=== PATIENT | male | born 1950 | race Caucasian/White ===

== ENCOUNTER 2018-01-06 09:32 | Outpatient (CLI) | payer MEDICARE ==
[2018-01-06] MEDS ORDERED: Iopamidol 370 76% 100 ML VIAL ONE (16:46)
== END 2018-01-06 09:33 | disposition home or self-care (01) ==
LOC: BICCT 09:32
PROVIDERS: ATTEND Internal Medicine Gastroenterology
DX: K76.0 Fatty (change of) liver, not elsewhere classified (principal); K76.89 Other specified diseases of liver; R94.5 Abnormal results of liver function studies; N28.1 Cyst of kidney, acquired
CPT/HCPCS: 74170

== ENCOUNTER 2019-02-19 07:44 | Day surgery (SDC) | payer MEDICARE ==
[2019-02-18 08:35] VITALS: BMI 32.4
[~2019-02-19 07:44] MED LIST: Prevnar 13-Val Conj/PF 0.5 ML SYRINGE IM ONE
[2019-02-19 08:10] LABS: #Basophils 0.1 thou/uL (0.0-0.2); #Eosinphils 0.6 thou/uL (0.0-0.7); #Lymphocytes 3.2 thou/uL (1.20-3.40); #Monocytes 0.8 thou/uL (0.11-0.59); #Neutrophils 4.8 thou/uL (1.40-6.50); %Basophils 0.8 % (0.0-1.0); %Eosinophils 6.8 % (0.0-10.0); %Lymphocytes 33.7 % (21.0-51.0); %Monocytes 8.3 % (0.0-10.0); %Neutrophils 50.4 % (42.0-75.0); Hemoglobin 15.5 g/dL (14.0-18.0); Mean Corpuscular HGB CONC 32.7 g/dL (32.0-36.0); Mean Corpuscular Hemoglobin 29.6 pg (27.0-31.0); Mean Corpuscular Volume 90.6 fL (78.0-98.0); Mean Platelet Volume 8.3 fL (7.4-10.4); Platelet Count 237 thou/uL (130-400); RBC Distribution Width 12.2 % (11.5-14.5); Red Blood Cell (RBC) Count 5.23 mill/uL (4.70-6.10); White Blood Cell (WBC) Count 9.4 thou/uL (4.8-10.8)
[2019-02-19 08:15] LABS: Prothrombin Time 13.6 SEC (12.0-14.7)
[2019-02-19] MEDS ORDERED: Sodium Bicarbonate 2.5 MEQ/5 ML VIAL ONE (08:55)
[2019-02-19] MEDS ORDERED: Midazolam HCl 2 mg/2 ml Vial ONE (08:56)
[2019-02-19] MEDS ORDERED: Fentanyl 100 MCG/2 ML VIAL ONE (08:56)
[2019-02-19] MEDS ORDERED: Lidocaine 1% PF 5 ML VIAL ONE (09:09)
--- NOTE | 2019-02-19 09:29 | ULT ---
Limited hepatic ultrasound: 02/19/2019 COMPARISON: None HISTORY: Evaluate hepatic parenchyma for potential percutaneous biopsy. FINDINGS: Provided images demonstrate increased echogenicity of the hepatic parenchyma suggesting hep atocellular disease, such as steatosis. Partially visualized prominent cyst within right lobe of liver noted measuring 4.8 cm. Secondary to the location of the liver in the upper epigastric region, no good sonographic window is available. Biopsy will thus be performed with CT guidance. IMPRESSION: Increased echogenicity of the hepatic parenchyma. No good sonographic window for biopsy. Please see above discussion.
--- NOTE | 2019-02-19 10:13 | CT ---
CT-guided liver biopsy: 02/19/2019 HISTORY: Abnormal liver function tests FINDINGS: Informed consent obtained prior to the procedure. Study performed with CT guidance secondar y to poor sonographic window. Preprocedural imaging demonstrates scattered right and left hepatic cysts, measuring up to 5.1 cm on the right and 2.6 cm on the left. There are a few scattered diverticula of the colon in the region of the transverse colon, splenic flexure, and descending colon. Skin overlying the inferior lateral aspect of the right lobe of the liver was prepped and draped in n ormal sterile fashion. Skin overlying this region was anesthetized with 1% buffered lidocaine. With intermittent CT guidance, a 17-gauge guide needle was advanced into the hepatic parenchyma. This was confirmed with CT prior to biopsy. Then, an 18-gauge core biopsy with a 2.3 cm throw was obtained. The specimen appears adequate and was placed in specimen container, sent to the laboratory for assessment. Needle was removed. Hemostasis was achieved with manual compression. Patient tolerated the procedure well. No postprocedural complications. For conscious sedation, the patient received 0.5 mg of Versed and 25 mcg of fentanyl intravenously. T he patient was continuously monitored by a member of the division of radiology nursing staff. IMPRESSION: Successful CT-guided core biopsy of right lobe liver.
== END 2019-02-19 11:00 | disposition home or self-care (01) ==
LOC: ULT 07:44
PROVIDERS: ATTEND Internal Medicine Gastroenterology
PROC: 0FB13ZX Excision of Right Lobe Liver, Percutaneous Approach, Diagnostic (ICD-10-PCS; principal; 2019-02-19)
DX: K76.0 Fatty (change of) liver, not elsewhere classified (principal); K76.89 Other specified diseases of liver; K57.30 Diverticulosis of large intestine without perforation or abscess without bleeding; I10 Essential (primary) hypertension; I25.10 Atherosclerotic heart disease of native coronary artery without angina pectoris; I48.92 Unspecified atrial flutter; E78.5 Hyperlipidemia, unspecified; K21.9 Gastro-esophageal reflux disease without esophagitis; Z79.82 Long term (current) use of aspirin; Z79.899 Other long term (current) drug therapy; Z95.1 Presence of aortocoronary bypass graft
CPT/HCPCS: 36415; 47000; 77002; 85025; 85610; 85730; 88307; 88313; J2001; J2250; J3010

== ENCOUNTER 2021-08-25 10:54 | Outpatient (CLI) | payer MEDICARE | END 2021-08-25 10:55 | disposition home or self-care (01) | LOC: BICCT 10:54 | PROVIDERS: ATTEND Urology | DX: R31.29 Other microscopic hematuria (principal); N28.1 Cyst of kidney, acquired; K76.89 Other specified diseases of liver | CPT/HCPCS: 74178 ==

== ENCOUNTER 2021-09-18 07:38 | Outpatient (CLI) | payer MEDICARE ==
[2021-09-18] MEDS ORDERED: Iopamidol-370 76% 500 ML 1 ML ONE (09:39)
== END 2021-09-18 07:39 | disposition home or self-care (01) ==
LOC: BICCT 07:38
PROVIDERS: ATTEND Urology
DX: N28.89 Other specified disorders of kidney and ureter (principal); R31.29 Other microscopic hematuria; N28.1 Cyst of kidney, acquired; K76.9 Liver disease, unspecified; K57.30 Diverticulosis of large intestine without perforation or abscess without bleeding
CPT/HCPCS: 74170

== ENCOUNTER 2021-10-25 09:59 | Outpatient (CLI) | payer MEDICARE ==
[2021-10-25 10:28] LABS: Estimated GFR-MDRD - POC Greater than 90
== END 2021-10-25 10:00 | disposition home or self-care (01) ==
LOC: CT 09:59
PROVIDERS: ATTEND Urology
DX: N28.1 Cyst of kidney, acquired (principal); N28.89 Other specified disorders of kidney and ureter; Z80.51 Family history of malignant neoplasm of kidney
CPT/HCPCS: 71260; 78306; 82565; A9503

== ENCOUNTER 2025-08-06 04:37 | Emergency (ER) | payer MEDICARE ==
[2025-08-06 11:38] LABS: Bacteria/HPF None Seen HPF (None Seen); CAUTI Indications for Culture Dysuria,urgency,freq; Glucose, Urine (Dipstick) Normal (Negative); Leukocyte Negative Leu/uL (Negative); Protein, Urine (Dipstick) 30 mg/dL (Neg-Trace); Specific Gravity, Urine 1.024 (1.002-1.036); WBC/HPF 0-3 HPF (0-3)
[2025-08-06 11:40] LABS: Urine Culture Reflex No No
[2025-08-06 13:25] LABS: Hematocrit 42.0 % (42.0-52.0); Hemoglobin 14.6 g/dL (14.0-18.0); Mean Corpuscular Volume 92.3 fL (78.0-98.0); Red Blood Cell (RBC) Count 4.55 mill/uL (4.70-6.10); White Blood Cell (WBC) Count 9.79 10x3/uL (4.8-10.8)
[2025-08-06 13:26] LABS: #Basophils 0.04 10x3/uL (0.0-0.2); #Eosinophils 0.06 10x3/uL (0.0-0.7); #Monocytes 0.70 10x3/uL (0.11-0.59); #Neutrophils 8.13 10x3/uL (1.40-6.50); %Basophils 0.4 % (0.0-1.0); %Eosinophils 0.6 % (0.0-10.0); %Lymphocytes 8.4 % (21.0-51.0); %Monocytes 7.2 % (0.0-10.0); %Neutrophils 83.0 % (42.0-75.0); Mean Corpuscular Hemoglobin 32.1 pg (27.0-31.0); Platelet Count 224 10x3/uL (130-400)
[2025-08-06 13:30] LABS: ALT (SGPT) 65 U/L (Less than 45); AST (SGOT) 53 U/L (11-34); Albumin 3.9 g/dL (3.1-4.5); Alkaline Phosphatase 86 U/L (40-110); Anion Gap 17 mmol/L (10-20); BUN (Urea Nitrogen) 12 mg/dL (8.4-25.7); Bilirubin, Total 1.1 mg/dL (0.3-1.2); Calc. Creatinine Clearance 0 mL/min (70-130); Calcium 9.4 mg/dL (7.8-10.44); Carbon Dioxide 25 mmol/L (23-31); Chloride 103 mmol/L (98-107); Globulin 3.3 g/dL (2.4-3.5); Glucose 119 mg/dL (83-110); Potassium 3.6 mmol/L (3.5-5.1); Sodium 141 mmol/L (136-145)
== END 2025-08-06 12:06 | disposition home or self-care (01) ==
LOC: ERS 04:37
DX: B34.9 Viral infection, unspecified (principal); R31.9 Hematuria, unspecified; I10 Essential (primary) hypertension; E78.5 Hyperlipidemia, unspecified
CPT/HCPCS: 71045; 80053; 81001; 83605; 84484; 85025; 87040; 87086; 87428; 93005